=== PATIENT | female | born 1940 | race Caucasian/White ===

== ENCOUNTER → 2016-12-17 | Outpatient (RCR) | payer MEDICARE, OTHER ==
[~2016-12-17] MED LIST: AFRIN 20 ML20 M2 NS; AFRIN NASAL SPR15 M1 NS; ALLFEN400 MG PO; ANTIVERT 12.512.5 MG PO; ASPIR-LOW81 MG PO; ASPIRIN 81M81 MG/TA2 PO; ASPIRIN E.C. 8181 MG PO; BACTROBAN 22GM22 GM TP; BENICAR; BENICAR 20MG TA20 MG PO; BENICAR40 MG PO; BISACODYL10 MG RC; BUMEX 1MG TA1 MG/TA1 PO; BUMEX0.5 MG PO; BYDUREON P2 MG/0.65; BYSTOLIC10 MG PO; BYSTOLIC5 MG PO; CALCIUM 500 W/V1 TAB PO; CATAPRES 0.1MG0.1 MG PO; CENTRUM SILVER1 TA1 PO; CEPHALEXIN500 M1 PO; CIPRO 250MG TA250 MG PO; CITRACAL + D 251 TAB PO; CLARITIN 1010 MG/TAB PO; CLONAZEPAM PO; CLONAZEPAM1 MG PO; COLACE 100100 MG/CAP PO; COZAAR100 MG PO; CRESTOR40 MG PO; CYMBALTA; CYMBALTA 60MG60 MG PO; CYMBALTA30 MG PO; DEBROX OT; DEPLIN7.5 MG PO; DESOWEN0.05% TP; DIFLUCAN200 MG PO; DIGOXIN PO; DIGOXIN0.25 MG PO; DOXYCYCLINE 10100 MG PO; DULCOLAX10 MG RC; EPA FISH OIL1000 MG PO; EPA1000 MG PO; FERROUS SULFATE65 MG PO; FLAGYL500 MG PO; FOLIC ACID PO; FORTAMET500 MG PO; GABAPENTIN600 MG PO; GLUCAGEN1 MG IJ; GLUCAGON1 MG IJ; GLUCERNA 1.2 C240 ML PO; GLUCOPHAGE XR500 M1 PO; GLUCOPHAGE1000 MG PO; GLUMETZA1000 MG PO; HCTZ 25MG TAB25 MG PO; HCTZ 25MG25 MG PO; INDERAL; INDERAL 20MG20 MG PO; INSULIN NOVO100 U/ML SQ; IPRATROPIUM BROM3 M1 IH; IRON325 M1 PO; KLONOPIN 1MG1 MG PO; LANTUS100 U/ML SC; LANTUS100 U/ML SQ; LASIX 20MG TABL20 MG PO; LEVAQUIN 750MG750 M1 PO; LIPITOR; LIPITOR 80MG80 MG PO; LIPITOR PO; LIPITOR80 MG PO; LORATADINE10 MG PO; LORTAB 5/500 501 TAB PO; MASON NATURAL1200 MG PO; MILK OF MA400 MG/5 M PO; MUCUS RELIEF200 MG PO; MUCUSRELF400T PO; MULTIPLE VITAMI1 CAP PO; MULTIVITAMIN FO1 CAP PO; MULTIVITAMIN1 TA1 PO; MYLANTA 150 ML150 M1 PO; NEURONTIN100 MG/CAP PO; NEURONTIN300 MG/CAP PO; NIZORAL SHAMPO120 M1 TP; NIZORAL2% TP; NORCO 325 MG-51 TAB PO; NOVLOG SQ; NOVOLIN 70/30 IN3 ML SC; NOVOLOG 100U100 U/M1 SC; NOVOLOG 100U100 U/M1 SQ; NOVOLOG 100U100 U/ML SQ; NOVOLOG FLEX100 U/ML SC; NOVOLOG FLEX100 U/ML SQ; OMEGA-3 FISH1200 MG PO; OMEGA-31000 MG PO; PEPCID 20MG TAB20 MG PO; PHARMASSURE FO0.4 MG PO; PRADAXA75 MG PO; PROAIR HFA0.09 MG/AC IH; PROVENTIL0.09 MG/A1 IH; REMERON 15M15 MG/TA1 PO; RT ALBUTER2.5 MG/0.5 IH; RYZOLT100 MG PO; SYNTHROID0.1 MG/TAB PO; TAMIFLU 75MG75 MG PO; TRIAMCINOLONE0.1%; TYLENOL 325MG325 MG PO; TYLENOL 500MG500 MG PO; TYLENOL EXTRA500 M1 PO; TYLENOL SU325 MG/SUP RC; TYLENOL SU650 MG/SUP RC; ULTRAM 50MG TAB50 MG PO; VALTREX1 GM PO; VANIQA 13.9% TP; VENTOLIN0.09 MG IH; VITAMIN C BUFF500 MG PO; VITAMIN C PURE500 M1 PO; VITAMIN C500 MG PO; VITAMIN D 400400 IU PO; VITAMIN D32000 I1 PO; ZAROXOLYN 2.52.5 MG; ZAROXOLYN 2.52.5 MG PO; ZITHROMAX500 M2 PO; ZOFRAN8 MG PO; [UNRECOGNIZED DRUG - OTHER]; [UNRECOGNIZED DRUG - OTHER] TP; [UNRECOGNIZED DRUG - OTHER] TP
== END | disposition home or self-care (01) ==
LOC: WSPT
DX: M17.0 Bilateral primary osteoarthritis of knee (principal)
CPT/HCPCS: G8978-GP; G8979-GP

== ENCOUNTER 2017-03-02 14:00 | Outpatient (RCR) | payer MEDICARE, OTHER ==
[~2017-03-02 14:00] MED LIST changes: -BYDUREON P2 MG/0.65; -CIPRO 250MG TA250 MG PO; -COLACE 100100 MG/CAP PO; -DESOWEN0.05% TP; -FLAGYL500 MG PO; -GLUCOPHAGE XR500 M1 PO; -NOVOLOG FLEX100 U/ML SQ; -PRADAXA75 MG PO; -ZAROXOLYN 2.52.5 MG PO
== END 2017-03-21 | disposition home or self-care (01) ==
LOC: WSPT
DX: M17.0 Bilateral primary osteoarthritis of knee (principal)
CPT/HCPCS: G8978-GP; G8979-GP; G8980-GP

== ENCOUNTER → 2017-03-05 | Outpatient (CLI) | payer MEDICARE, OTHER ==
[~2017-03-05] MED LIST changes: +BYDUREON P2 MG/0.65; +CIPRO 250MG TA250 MG PO; +COLACE 100100 MG/CAP PO; +DESOWEN0.05% TP; +FLAGYL500 MG PO; +GLUCOPHAGE XR500 M1 PO; +NOVOLOG FLEX100 U/ML SQ; +PRADAXA75 MG PO; +ZAROXOLYN 2.52.5 MG PO
== END ==
LOC: MC.RAD 13:20
DX: Z12.31 Encounter for screening mammogram for malignant neoplasm of breast (principal)

== ENCOUNTER → 2017-03-18 | Outpatient (CLI) | payer MEDICARE, OTHER | LOC: BHSO 10:42 | DX: F33.41 Major depressive disorder, recurrent, in partial remission (principal) ==

== ENCOUNTER 2017-07-08 09:29 | Inpatient (IN) | payer MEDICARE, OTHER ==
[~2017-07-08] VITALS: Ht 162.6 cm; Wt 163.6 kg
[2017-07-08] VITALS (335 sets, daily range): BP systolic 132–155; BP diastolic 69–102; PULSE 74–81; TEMP 97.9–98.7; O2SAT 83–99
[~2017-07-08 09:29] MED LIST changes: -BYDUREON P2 MG/0.65; -CIPRO 250MG TA250 MG PO; -COLACE 100100 MG/CAP PO; -DESOWEN0.05% TP; -FLAGYL500 MG PO; -GLUCOPHAGE XR500 M1 PO; -NOVOLOG FLEX100 U/ML SQ; -PRADAXA75 MG PO; -ZAROXOLYN 2.52.5 MG PO
[2017-07-08 11:46] LABS: BASO # 0.1 (0.0-0.2); BASO % 0.5 % (0.0-2.0); EOS # 0.2 (0.0-0.7); EOS % 1.6 % (0-4.0); GRAN # 7.6 (1.4-6.5); GRAN % 71.7 % (42.2-75.2); HEMATOCRIT 42.2 % (37.0-47.0); HEMOGLOBIN 13.1 g/dl (12.5-16.0); LYMPH # 2.3 (1.2-3.4); LYMPH % 21.3 % (20.0-51.0); MEAN CELL VOLUME 91 fl (80.0-100.0); MEAN CORPUSCULAR HEMOGLOBIN 28 pg (27.0-31.0); MEAN CORPUSCULAR HGB CONC 31 g/dl (33.0-37.0); MEAN PLATELET VOLUME 9.5 fl (7.4-10.4); MONO # 0.5 (0.1-0.6); MONO % 4.3 % (1.7-9.3); PLATELET COUNT 206 K/mm3 (130-400); PROTHROMBIN TIME 11.6 SECONDS (9.7-12.8); RED BLOOD COUNT 4.63 M/mm3 (4.10-5.30); REDCELL DISTRIBUTION WIDTH-CV 15.5 % (11.5-14.5); WHITE BLOOD COUNT 10.6 K/mm3 (4.8-10.8)
[2017-07-08 11:49] LABS: PARTIAL THROMBOPLASTIN TIME 22.4 SECONDS (26.0-37.0)
[2017-07-08 11:53] LABS: ADJUSTED CALCIUM 9.1 mg/dL (8.4-10.2); ALBUMIN 4.1 gm/dL (3.5-5.0); BILIRUBIN,TOTAL 0.8 mg/dL (0.0-1.0); CALCIUM 9.2 mg/dL (8.4-10.2); CREATININE, serum 0.79 mg/dL (0.52-1.25); TOTAL PROTEIN 7.3 gm/dL (6.4-8.2)
[2017-07-08 12:02] LABS: PH 6 (5-8); SQUAMOUS EPITHELIAL None Seen /hpf; URINE APPEARANCE Clear; URINE BACTERIA None Seen /hpf; URINE BILIRUBIN Negative (NEGATIVE); URINE BLOOD Negative (NEGATIVE); URINE COLOR Yellow; URINE GLUCOSE Negative (NEGATIVE); URINE KETONE Negative (NEGATIVE); URINE RBC 0-2 /hpf; URINE UROBILINOGEN Negative (NEGATIVE)
[2017-07-08] MEDS ORDERED: BUMEX 1MG TA1 MG/TA1 PO (13:59)
[2017-07-08] MEDS ORDERED: ASPIRIN 81M81 MG/TA2 PO (13:59)
[2017-07-08] MEDS ORDERED: CRESTOR40 MG PO (14:00)
[2017-07-08] MEDS ORDERED: BYSTOLIC5 MG PO (14:00)
[2017-07-08] MEDS ORDERED: KLONOPIN 1MG1 MG PO (14:00)
[2017-07-08] MEDS ORDERED: BYDUREON P2 MG/0.65 (14:00)
[2017-07-08] MEDS ORDERED: CYMBALTA 60MG60 MG PO (14:01)
[2017-07-08] MEDS ORDERED: DESOWEN0.05% TP (14:01)
[2017-07-08] MEDS ORDERED: COLACE 100100 MG/CAP PO (14:01)
[2017-07-08] MEDS ORDERED: NEURONTIN300 MG/CAP PO ×2 (14:02→16:37)
[2017-07-08] MEDS ORDERED: NOVOLOG FLEX100 U/ML SQ (14:02)
[2017-07-08] MEDS ORDERED: LANTUS100 U/ML SQ (14:02)
[2017-07-08] MEDS ORDERED: SYNTHROID0.1 MG/TAB PO (14:03)
[2017-07-08] MEDS ORDERED: CLARITIN 1010 MG/TAB PO (14:03)
[2017-07-08] MEDS ORDERED: ZAROXOLYN 2.52.5 MG PO (14:04)
[2017-07-08] MEDS ORDERED: GLUCOPHAGE XR500 M1 PO (14:04)
[2017-07-08] MEDS ORDERED: BENICAR40 MG PO (14:05)
[2017-07-08] MEDS ORDERED: PRADAXA75 MG PO (14:05)
[2017-07-08] MEDS ORDERED: REMERON 15M15 MG/TA1 PO (14:05)
[2017-07-09] VITALS (715 sets, daily range): BP systolic 92–165; BP diastolic 47–81; PULSE 66–89; TEMP 97.4–98.3; O2SAT 68–100
[2017-07-09 05:03] LABS: BASO # 0.1 (0.0-0.2); BASO % 0.6 % (0.0-2.0); EOS # 0.3 (0.0-0.7); EOS % 3.2 % (0-4.0); GRAN # 4.7 (1.4-6.5); GRAN % 57.6 % (42.2-75.2); HEMATOCRIT 39.5 % (37.0-47.0); HEMOGLOBIN 12.4 g/dl (12.5-16.0); LYMPH # 2.5 (1.2-3.4); LYMPH % 30.5 % (20.0-51.0); MEAN CELL VOLUME 91 fl (80.0-100.0); MEAN CORPUSCULAR HEMOGLOBIN 29 pg (27.0-31.0); MEAN CORPUSCULAR HGB CONC 31 g/dl (33.0-37.0); MEAN PLATELET VOLUME 9.7 fl (7.4-10.4); MONO # 0.6 (0.1-0.6); MONO % 7.9 % (1.7-9.3); PLATELET COUNT 165 K/mm3 (130-400); RED BLOOD COUNT 4.33 M/mm3 (4.10-5.30); REDCELL DISTRIBUTION WIDTH-CV 15.8 % (11.5-14.5); WHITE BLOOD COUNT 8.1 K/mm3 (4.8-10.8)
[2017-07-09 05:11] LABS: CALCIUM 8.7 mg/dL (8.4-10.2); CREATININE, serum 0.76 mg/dL (0.52-1.25); POTASSIUM 3.6 mmol/L (3.4-5.0)
[2017-07-10 00:45] VITALS: BP 102/81; PULSE 73; TEMP 97.6
[2017-07-10 08:34] VITALS: BP 127/46; PULSE 76; TEMP 98.7
[2017-07-10 13:05] VITALS: BP 76/53; PULSE 53; TEMP 97.8
[2017-07-10] MEDS ORDERED: CIPRO 250MG TA250 MG PO (13:11)
[2017-07-10] MEDS ORDERED: FLAGYL500 MG PO (13:12)
[2017-07-10] MEDS ORDERED: ASPIRIN 81M81 MG/TA2 PO (13:27)
== END 2017-07-10 16:15 | disposition home or self-care (01) | DRG 392 ==
LOC: COL.ER 09:29 → ICU 15:58 → MEDICAL 07-09 13:05
PROVIDERS: Emergency Medicine; Physician Assistant
DX: K52.9 Noninfective gastroenteritis and colitis, unspecified (principal); K92.1 Melena; Z68.44 Body mass index [BMI] 60.0-69.9, adult; I10 Essential (primary) hypertension; E11.9 Type 2 diabetes mellitus without complications; E66.01 Morbid (severe) obesity due to excess calories; I89.0 Lymphedema, not elsewhere classified; Z95.820 Peripheral vascular angioplasty status with implants and grafts; Z95.5 Presence of coronary angioplasty implant and graft; Z79.4 Long term (current) use of insulin; I73.9 Peripheral vascular disease, unspecified
CPT/HCPCS: 99223-AI; 99233-AI; 99239; J1815; J1956; J7030; Q9967

== ENCOUNTER → 2017-10-27 | Outpatient (CLI) | payer MEDICARE, OTHER ==
[~2017-10-27] MED LIST changes: +BYDUREON P2 MG/0.65; +CIPRO 250MG TA250 MG PO; +COLACE 100100 MG/CAP PO; +DESOWEN0.05% TP; +FLAGYL500 MG PO; +GLUCOPHAGE XR500 M1 PO; +NOVOLOG FLEX100 U/ML SQ; +PRADAXA75 MG PO; +ZAROXOLYN 2.52.5 MG PO
== END ==
LOC: BHSO 13:22
DX: F41.1 Generalized anxiety disorder (principal)

== ENCOUNTER → 2018-01-27 | Outpatient (CLI) | payer MEDICARE, OTHER | LOC: BHSO 13:40 | DX: F33.41 Major depressive disorder, recurrent, in partial remission (principal) | CPT/HCPCS: G0463 ==

== ENCOUNTER 2018-05-01 10:08 | Outpatient (RCR) | payer MEDICARE, OTHER ==
[~2018-05-01] VITALS: Ht 162.6 cm; Wt 158.2 kg
[~2018-05-01 10:08] MED LIST changes: +DULCOLAX STOOL100 MG PO; +KLOR-CON 1010 MEQ PO; +ONE DAILY1 TA1 PO; +VITAMINC1000TA PO
[2018-05-01 10:38] VITALS: BP 125/54; PULSE 81; TEMP 97
[2018-05-01 11:08] VITALS: BP 125/54; PULSE 81; TEMP 97
== END 2018-05-01 15:45 | disposition home or self-care (01) ==
LOC: EUO 10:08 → MEDICAL 10:09 → EUO 15:45
DX: R60.0 Localized edema (principal); R63.5 Abnormal weight gain
CPT/HCPCS: OP

== ENCOUNTER 2018-05-09 10:30 | Outpatient (RCR) | payer MEDICARE, OTHER ==
[2018-04-27 09:40] LABS: HEMATOCRIT 36.5 % (37.0-47.0); HEMOGLOBIN 11.4 g/dl (12.5-16.0); MEAN CELL VOLUME 91 fl (80.0-100.0); MEAN CORPUSCULAR HEMOGLOBIN 29 pg (27.0-31.0); MEAN CORPUSCULAR HGB CONC 31 g/dl (33.0-37.0); MEAN PLATELET VOLUME 9.8 fl (7.4-10.4); PLATELET COUNT 202 K/mm3 (130-400); REDCELL DISTRIBUTION WIDTH-CV 15.8 % (11.5-14.5)
[2018-04-27 09:50] LABS: CREATININE, serum 0.91 mg/dL (0.52-1.25); POTASSIUM 3.7 mmol/L (3.4-5.0)
[2018-04-27 10:00] VITALS: BP 158/72; PULSE 110; TEMP 98
[2018-04-28 09:26] VITALS: BP 120/55; PULSE 97; TEMP 98.3
[2018-04-28 09:41] LABS: CALCIUM 8.6 mg/dL (8.4-10.2); CREATININE, serum 0.84 mg/dL (0.52-1.25); POTASSIUM 3.8 mmol/L (3.4-5.0)
[2018-04-29 08:14] VITALS: BP 126/49; PULSE 86; TEMP 98.5
[2018-04-29 08:29] LABS: CALCIUM 8.8 mg/dL (8.4-10.2); CREATININE, serum 0.94 mg/dL (0.52-1.25); POTASSIUM 3.7 mmol/L (3.4-5.0)
[2018-04-30 11:12] VITALS: BP 115/52; PULSE 78; TEMP 98.2
[2018-04-30 11:23] LABS: CALCIUM 9.4 mg/dL (8.4-10.2); CREATININE, serum 0.9 mg/dL (0.52-1.25); POTASSIUM 3.4 mmol/L (3.4-5.0)
[2018-04-30 11:25] VITALS: BP 115/52; PULSE 78; TEMP 98.2
[2018-05-02 11:01] VITALS: BP 146/52; PULSE 91; TEMP 98.4
[~2018-05-09] VITALS: Ht 162.6 cm; Wt 158.2 kg
[2018-05-09 10:24] VITALS: BP 130/67; PULSE 93; TEMP 98.6
== END 2018-05-12 14:07 | disposition home or self-care (01) ==
LOC: EUO 10:30
PROVIDERS: Internal Medicine Interventional Cardiology
DX: R60.0 Localized edema (principal)
CPT/HCPCS: OP; C1751

== ENCOUNTER → 2018-05-24 | Outpatient (CLI) | payer MEDICARE, OTHER | LOC: BHSO 14:15 | DX: F33.41 Major depressive disorder, recurrent, in partial remission (principal) | CPT/HCPCS: G0463 ==

== ENCOUNTER 2018-07-19 11:30 | Outpatient (RCR) | payer MEDICARE, OTHER ==
[2018-07-07 14:42] LABS: HEMATOCRIT 37.8 % (37.0-47.0); MEAN CELL VOLUME 91 fl (80.0-100.0); MEAN CORPUSCULAR HEMOGLOBIN 29 pg (27.0-31.0); MEAN CORPUSCULAR HGB CONC 32 g/dl (33.0-37.0); MEAN PLATELET VOLUME 9.8 fl (7.4-10.4); PLATELET COUNT 219 K/mm3 (130-400); RED BLOOD COUNT 4.14 M/mm3 (4.10-5.30); REDCELL DISTRIBUTION WIDTH-CV 15.5 % (11.5-14.5)
[2018-07-07 14:48] LABS: CALCIUM 9.2 mg/dL (8.4-10.2); CREATININE, serum 0.97 mg/dL (0.52-1.25); POTASSIUM 3.8 mmol/L (3.4-5.0)
[2018-07-07 15:31] VITALS: BP 122/57; PULSE 77
[2018-07-11 12:25] LABS: CALCIUM 9.2 mg/dL (8.4-10.2); CREATININE, serum 0.8 mg/dL (0.52-1.25)
[2018-07-11 12:37] VITALS: BP 95/53; PULSE 93
[2018-07-13 11:20] LABS: CALCIUM 9.1 mg/dL (8.4-10.2); CREATININE, serum 0.82 mg/dL (0.52-1.25); POTASSIUM 3.8 mmol/L (3.4-5.0)
[2018-07-15 12:16] VITALS: BP 118/45; PULSE 84
[2018-07-15 12:33] LABS: CALCIUM 9.1 mg/dL (8.4-10.2); CREATININE, serum 0.74 mg/dL (0.52-1.25); POTASSIUM 3.7 mmol/L (3.4-5.0)
[~2018-07-19] VITALS: Ht 162.6 cm; Wt 157.3 kg
[~2018-07-19 11:30] MED LIST changes: +ARTIFICIAL TEAR15 M7 OP; +DIOVAN 40MG40 MG PO; +MIRALAX PA17 GM/Dose PO; +OPTIVE SENSITI0.4 ML OP
[2018-07-19 12:00] VITALS: BP 94/45; PULSE 76; TEMP 98.6
[2018-07-19 12:28] LABS: CALCIUM 9.2 mg/dL (8.4-10.2); CREATININE, serum 0.84 mg/dL (0.52-1.25); POTASSIUM 3.8 mmol/L (3.4-5.0)
[2018-07-19 17:15] VITALS: BP 132/61; PULSE 97
== END 2018-07-19 17:30 ==
LOC: EUO 11:30
PROVIDERS: Internal Medicine Interventional Cardiology
DX: I50.32 Chronic diastolic (congestive) heart failure (principal)

== ENCOUNTER → 2018-08-23 | Outpatient (CLI) | payer MEDICARE, OTHER | LOC: BHSO 14:16 | DX: F33.42 Major depressive disorder, recurrent, in full remission (principal) | CPT/HCPCS: G0463 ==

== ENCOUNTER 2018-11-23 10:33 | Outpatient (CLI) | payer MEDICARE, OTHER ==
[~2018-11-23] VITALS: Ht 162.6 cm; Wt 156.0 kg
[2018-11-23 10:55] VITALS: BP 116/51; PULSE 92; TEMP 98.8
[2018-11-23] MEDS ORDERED: NOVOLOG 100U100 U/M1 SQ (11:47)
--- NOTE | 2018-11-23 12:05 | NUR ---
R picc removal site remains C/D/I. Pt transfered to [facility] with [facility]. Pt discharged with [employer] transportation.
== END 2018-11-23 12:14 | disposition home or self-care (01) ==
LOC: EUO 10:33
DX: Z95.828 Presence of other vascular implants and grafts (principal)

== ENCOUNTER → 2019-03-02 | Outpatient (CLI) | payer MEDICARE, OTHER | LOC: BHSO 10:27 | DX: F41.1 Generalized anxiety disorder (principal) | CPT/HCPCS: G0463 ==

== ENCOUNTER → 2019-08-31 | Outpatient (CLI) | payer MEDICARE, OTHER | LOC: BHSO 10:48 | DX: F33.41 Major depressive disorder, recurrent, in partial remission (principal) | CPT/HCPCS: G0463 ==

== ENCOUNTER → 2020-08-21 | Outpatient (CLI) | payer MEDICARE, OTHER | LOC: BHSO 15:17 | DX: F33.41 Major depressive disorder, recurrent, in partial remission (principal) ==

== ENCOUNTER → 2021-09-03 | Emergency (ER) | payer MEDICARE, OTHER ==
[~2021-09-03] VITALS: Ht 162.6 cm; Wt 152.3 kg
[2021-09-03 01:36] VITALS: BP 148/72; PULSE 89; TEMP 98.7
[2021-09-03 02:08] LABS: BASO # 0.1 K/mm3 (0.0-0.2); BASO % 0.6 % (0.0-2.0); EOS # 0.3 K/mm3 (0.0-0.7); EOS % 3.7 % (0-4.0); GRAN # 4.7 K/mm3 (1.4-6.5); HEMATOCRIT 38.4 % (37.0-47.0); HEMOGLOBIN 11.9 g/dl (12.5-16.0); LYMPH # 2.5 K/mm3 (1.2-3.4); LYMPH % 30.2 % (20.0-51.0); MEAN CELL VOLUME 93 fl (80.0-100.0); MEAN CORPUSCULAR HEMOGLOBIN 29 pg (27.0-31.0); MEAN CORPUSCULAR HGB CONC 31 g/dl (33.0-37.0); MONO # 0.7 K/mm3 (0.1-0.6); PLATELET COUNT 222 K/mm3 (130-400); RED BLOOD COUNT 4.13 M/mm3 (4.10-5.30); REDCELL DISTRIBUTION WIDTH-CV 15.9 % (11.5-14.5)
[2021-09-03 02:25] LABS: ALBUMIN 3.2 gm/dL (3.4-4.8); BILIRUBIN,TOTAL 0.3 mg/dL (0.2-1.2); CALCIUM 9.6 mg/dL (8.4-10.2); CREATININE, serum 0.9 mg/dL (0.57-1.11); MAGNESIUM 2.4 mg/dL (1.6-2.6); PHOSPHOROUS 2.9 mg/dL (2.3-4.7); POTASSIUM 3.7 mmol/L (3.5-4.5); TOTAL PROTEIN 6.7 gm/dL (6.2-8.1)
[2021-09-03 02:31] LABS: TROPONIN-I 0.018 ng/mL (0.00-0.033)
== END ==
LOC: COL.ER 01:31
PROVIDERS: Student in an Organized Health Care Education/Training Program
DX: R00.2 Palpitations (principal); E11.9 Type 2 diabetes mellitus without complications; I10 Essential (primary) hypertension; G47.33 Obstructive sleep apnea (adult) (pediatric); E66.01 Morbid (severe) obesity due to excess calories; Z95.5 Presence of coronary angioplasty implant and graft; Z99.89 Dependence on other enabling machines and devices; Z68.43 Body mass index [BMI] 50.0-59.9, adult; Z79.4 Long term (current) use of insulin; Z79.84 Long term (current) use of oral hypoglycemic drugs; Z79.899 Other long term (current) drug therapy

== ENCOUNTER 2022-05-28 11:56 | Emergency (ER) | payer MEDICARE, OTHER ==
[~2022-05-28] VITALS: Ht 162.6 cm; Wt 159.1 kg
[2022-05-28 12:03] VITALS: TEMP 98.8
[2022-05-28 12:38] LABS: COLLECTION METHOD CATHETER
[2022-05-28 12:45] LABS: MUCOUS Present (NOT PRESENT); PH 5 (5-8); SQUAMOUS EPITHELIAL 0-2 /hpf (0-10); URINE APPEARANCE Clear (CLEAR/HAZY); URINE BACTERIA None Seen /hpf (NONE SEEN); URINE BILIRUBIN Negative (NEGATIVE); URINE BLOOD Negative (NEGATIVE); URINE COLOR Yellow (YELLOW); URINE GLUCOSE Negative (NEGATIVE); URINE KETONE Negative (NEGATIVE); URINE LEUKOCYTE ESTERASE Negative (NEGATIVE); URINE NITRATE Negative (NEGATIVE); URINE PROTEIN(semi-quant) Negative (NEGATIVE); URINE RBC 0-2 /hpf (0-2); URINE UROBILINOGEN Negative (NEGATIVE)
[2022-05-28 14:34] LABS: BILIRUBIN,TOTAL 0.5 mg/dL (0.2-1.2); CALCIUM 8.8 mg/dL (8.4-10.2); CREATININE, serum 0.88 mg/dL (0.57-1.11); POTASSIUM 4.6 mmol/L (3.5-4.5); TOTAL PROTEIN 6.5 gm/dL (6.2-8.1)
[2022-05-28 14:43] LABS: BASO # 0.1 K/mm3 (0.0-0.2); BASO % 0.6 % (0.0-2.0); EOS # 0.3 K/mm3 (0.0-0.7); EOS % 2.6 % (0.0-4.0); GRAN # 6.8 K/mm3 (1.4-6.5); GRAN % 69.5 % (42.2-75.2); HEMOGLOBIN 11.9 g/dl (12.5-16.0); LYMPH % 20.6 % (20.0-51.0); MEAN CELL VOLUME 94 fl (80.0-100.0); MEAN CORPUSCULAR HEMOGLOBIN 29 pg (27-31); MEAN CORPUSCULAR HGB CONC 31 g/dl (33.0-37.0); MEAN PLATELET VOLUME 10.2 fl (7.4-10.4); MONO # 0.6 K/mm3 (0.1-0.6); MONO % 6.4 % (1.7-9.3); PLATELET COUNT 212 K/mm3 (130-400); RED BLOOD COUNT 4.06 M/mm3 (4.10-5.30); REDCELL DISTRIBUTION WIDTH-CV 14.7 % (11.5-14.5)
[2022-05-28 16:56] VITALS: BP 127/82; PULSE 80
== END 2022-05-28 16:58 | disposition home or self-care (01) ==
LOC: COL.ER 11:56
PROVIDERS: Emergency Medicine; Nurse Practitioner Primary Care
DX: R19.7 Diarrhea, unspecified (principal); R53.81 Other malaise; Z86.16 Personal history of COVID-19; Z91.040 Latex allergy status; Z20.822 Contact with and (suspected) exposure to COVID-19
CPT/HCPCS: J7030

== ENCOUNTER 2024-09-09 09:32 | Emergency (ER) | payer MEDICARE, OTHER ==
[~2024-09-09] VITALS: Wt 160.0 kg
[~2024-09-09 09:32] MED LIST changes: +AMOXICILLIN 8751 TAB PO; +COZAAR 50MG50 MG/TAB PO; +OXYGEN NASAL.CANN; +PRILOSEC 20MG20 MG PO; +TOPROL XL 50MG50 MG PO; +WELLBUTRIN SR150 M1 PO
[2024-09-09 09:40] VITALS: TEMP 98.5
[2024-09-09 10:23] LABS: COLLECTION METHOD CATHETER
[2024-09-09 10:28] LABS: BASO % 0.4 % (0.0-2.0); EOS # 0.1 K/mm3 (0.0-0.7); EOS % 1.8 % (0.0-4.0); GRAN # 5.2 K/mm3 (1.4-6.5); GRAN % 73.1 % (42.2-75.2); HEMATOCRIT 37.7 % (37.0-47.0); HEMOGLOBIN 11.3 g/dl (12.5-16.0); LYMPH # 1.1 K/mm3 (1.2-3.4); LYMPH % 14.8 % (20.0-51.0); MEAN CELL VOLUME 92 fl (80.0-100.0); MEAN CORPUSCULAR HEMOGLOBIN 27 pg (27-31); MEAN CORPUSCULAR HGB CONC 30 g/dl (33.0-37.0); MONO # 0.7 K/mm3 (0.1-0.6); MONO % 9.1 % (1.7-9.3); PLATELET COUNT 240 K/mm3 (130-400); RED BLOOD COUNT 4.12 M/mm3 (4.10-5.30); REDCELL DISTRIBUTION WIDTH-CV 17.1 % (11.5-14.5)
[2024-09-09 10:31] LABS: INR 1.1 (0.8-3.0); PROTHROMBIN TIME 12.5 SECONDS (9.7-12.8)
[2024-09-09 10:35] LABS: PH 5.5 (5.0-8.5); URINE APPEARANCE CLOUDY (CLEAR/HAZY); URINE BLOOD 2+ (NEGATIVE); URINE COLOR Dark Yellow (YELLOW); URINE GLUCOSE NEGATIVE (NEGATIVE); URINE KETONE TRACE (NEGATIVE); URINE NITRATE NEGATIVE (NEGATIVE); URINE PROTEIN(semi-quant) 2+ (NEGATIVE)
[2024-09-09 10:42] LABS: ALBUMIN 3.1 g/dL (3.4-4.8); ALKALINE PHOSPHATASE 88 U/L (40-150); ANION GAP 11 mmol/L (7-16); AST,SGOT 8 U/L (5-34); BILIRUBIN,TOTAL 0.4 mg/dL (0.2-1.2); BLOOD UREA NITROGEN 13 mg/dL (10-20); CALCIUM 8.8 mg/dL (8.4-10.2); CHLORIDE 102 mEq/L (98-107); CREATININE, serum 0.81 mg/dL (0.57-1.11); GLUCOSE 163 mg/dL (70-99); SODIUM 147 mEq/L (136-145); TOTAL PROTEIN 6.1 g/dl (6.2-8.1)
[2024-09-09 10:47] LABS: ARTERIAL BLD GAS O2 SATURATION 96.2 % (92-100); ARTERIAL BLOOD GAS BASE EXCESS 5.9 (-2-2); ARTERIAL BLOOD GAS HCO3 31.4 meq/L (22-26); ARTERIAL BLOOD GAS PCO2 49.7 mmHg (35-45); ARTERIAL BLOOD GAS PO2 89.4 mmHg (80-100); ARTERIAL BLOOD GAS pH 7.42 (7.35-7.45)
[2024-09-09 10:48] LABS: TROPONIN-I 0.023 ng/mL (0.00-0.033)
[2024-09-09 10:51] LABS: MUCOUS PRESENT (NOT PRESENT); SQUAMOUS EPITHELIAL 0-2 /hpf (0-10); URINE BACTERIA OCCASIONAL /hpf (NONE SEEN); URINE WBC >50 /hpf (0-2)
[2024-09-09 10:55] LABS: ALANINE AMINOTRANSFERASE < 6 U/L (0-55)
[2024-09-09] MEDS ORDERED: K-DUR20 MEQ PO (12:09)
[2024-09-09] MEDS ORDERED: CIPRO 250MG TA250 MG PO (12:09)
[2024-09-09] MEDS ORDERED: Ciprofloxacin 250 MG TAB PO ONE (12:15)
[2024-09-09 13:06] VITALS: BP 145/72; PULSE 69
[2024-09-09] MEDS ORDERED: BACTRIM DS 8001 TAB PO (13:06)
[2024-09-09] MEDS ORDERED: Sulfamethoxazole/Trimethoprim 800-160 MG TAB PO ONE (13:15)
== END 2024-09-09 13:30 | disposition home or self-care (01) ==
LOC: COL.ER 09:32
PROVIDERS: Family Medicine
DX: N39.0 Urinary tract infection, site not specified (principal); E87.6 Hypokalemia